=== PATIENT | female | born 1955 | race Caucasian/White ===

== ENCOUNTER 2016-11-21 12:20 | Emergency (ER) | payer MEDICAID, OTHER ==
[~2016-11-21] VITALS: Ht 152.4 cm; Wt 57.0 kg
[~2016-11-21 12:20] MED LIST: ALEN70TA30 PO; ERGO500037 PO; GLIM1TAB2 PO; HYD25 PO; LOSA100T7 PO; METF1000 PO; SIMV40TA3 PO
[2016-11-21 12:26] VITALS: Ht 152.4 cm; Wt 57.0 kg
[2016-11-21] MEDS ORDERED: ONDANSETRON (ODT) 4 MG TAB ODT STA (14:33)
[2016-11-21] MEDS ORDERED: HYDROCODONE/APAP (10/325) TAB PO ONE (15:00)
--- NOTE | 2016-11-21 15:23 | ERD ---
ER Documentation Chief Complaint Date/Time DATE: 11/21/16 TIME: 15:21 Chief Complaint Complains of ANTWON Q abdominal pain radiates to the back HPI Patient is a 61-year-old female with diabetes who presents with left upper quadrant abdominal pain. The symptoms started 3 weeks ago and she has red bumps in a rash to that area. She also has right arm numbness and headache. She denies treatment as of yet. She has no fevers. The pain is sharp in nature and constant. Upon review of old medical records this is the patient's first visit to the emergency department. She does not currently have a primary doctor. ROS All systems reviewed and are negative except as per history of present illness. Medications Home Meds Reported Medications Ergocalciferol (Vitamin D2) (VITAMIN D2) 50,000 Unit Capsule, 37477 UNIT PO 09/20/13 Glimepiride* (Glimepiride*) 1 Mg Tablet, 1 MG PO WITH BREAKFAST, TAB 09/20/13 Metformin Hcl* (Metformin Hcl*) 1,000 Mg Tablet, 1000 MG PO BID, TAB 09/20/13 Losartan Potassium* (Losartan Potassium*) 100 Mg Tablet, 100 MG PO DAILY, TAB 09/20/13 Hydrochlorothiazide* (Hydrochlorothiazide*) 25 Mg Tab, 25 MG PO DAILY, TAB 09/20/13 Simvastatin (Simvastatin) 40 Mg Tablet, 40 MG PO HS, TAB 09/20/13 Alendronate Sodium* (Fosamax*) 70 Mg Tablet, 70 MG PO Q7D, TAB 09/20/13 Allergies Allergies: Coded Allergies: No Known Allergy (Unverified , 09/20/13) PMhx/Soc Medical and Surgical Hx: pt denies Medical Hx, pt denies Surgical Hx History of Surgery: Yes (LEFT EYE SURGERY, BILO CARPAL TUNNEL SURGERY, RIGHT BREAST MASS EXCISION) Anesthesia Reaction: No Hx Neurological Disorder: No Hx Respiratory Disorders: No Hx Cardiac Disorders: Yes (HTN, HIGH CHOLESTEROL) Hx Psychiatric Problems: No Hx Miscellaneous Medical Probl: No Hx Alcohol Use: No Hx Substance Use: No Hx Tobacco Use: No Smoking Status: Never smoker FmHx Family History: diabetes Physical Exam Vitals Vital Signs Date Time Temp Pulse Resp B/P Pulse Ox O2 Delivery O2 Flow Rate FiO2 11/21/16 12:26 98.6 86 20 168/77 96 Physical Exam Const: Mild distress secondary to pain Head: Atraumatic Eyes: Normal Conjunctiva ENT: Normal External Ears, Nose and Mouth. Neck: Full range of motion..~ No meningismus. Resp: Clear to auscultation bilaterally Cardio: Regular rate and rhythm, no murmurs Abd: Dermatomal rash to the left upper abdomen and back which does not cross the midline consistent with shingles Skin: Shingles to the left upper extremity and back Back: No midline or flank tenderness Ext: No cyanosis, or edema Neur: Awake and alert Psych: Normal Mood and Affect Results 24 hrs Current Medications Medications (Trade) Dose Ordered Sig/Ruben Route PRN Reason Start Time Stop Time Status Last Admin Dose Admin Acetaminophen/ Hydrocodone Bitart ([place] (10325)) 1 tab ONCE ONCE PO 11/21/16 15:00 11/21/16 15:01 DC 11/21/16 14:42 Ondansetron HCl (Zofran Odt) 4 mg ONCE STAT ODT 11/21/16 14:33 11/21/16 14:34 DC 11/21/16 14:41 Procedures/MDM Patient is a 61-year-old female who presents with shingles to the left upper extremity and back. She will be treated with 10 days of acyclovir. She will be treated with [place] for pain. She will need to follow-up with the local clinics within the next 24-48 hours if she does not currently have a primary doctor at this time. The patient can return for any worsening symptoms. I believe outpatient management is appropriate at this time. I doubt disseminated zoster at this time. Departure Diagnosis: Primary Impression: Shingles Herpes zoster complications: without complications Qualified Code: B02.9 - Herpes zoster without complication Additional Impression: Abdominal pain Abdominal location: left upper quadrant Qualified Code: R10.12 - Left upper quadrant pain Condition: Fair Patient Instructions: Shingles (Herpes Zoster) [facility] Usted se britton hecho un examen mdico de control que le indica que no est en joyce condicin que requiera tratamiento urgente en el Departamento de Emergencia. Un estudio ms profundo y el tratamiento de quintero condicin pueden esperar sin ningn riesgo hasta que usted sea atendida/o en el consultorio de quintero mdico o joyce cl joaquin. Es responsabilidad suya arreglar joyce heron para el seguimiento del stan. MANEJO DE CONDICIONES NO URGENTES EN EL FUTURO 1) Si usted tiene un mdico de atencin primaria: Usted debera llamar a quintero mdico de atencin primaria antes de venir al departamento de emergencia. Despus de las horas de consultorio, quintero doctor o quintero asociado/a est disponible por telfono. El mdico o enfermero de aston en el servicio telefnico puede asesorarle por jesse medio para atender el problema, o stan contrario se puede programar joyce heron. 2) Si usted no tiene un mdico de atencin primaria: Llame al mdico o clnica de referencia que aparece abajo selma las horas de consultorio para hacer joyce heron para que le vean. CLINICAS: [facility] [phone] [address] [facility] [phone] [address] [facility] [phone] [address] [facility] [place] [phone] [facility]. [place] [phone] [address] [facility] [phone] [address] Additional Instructions: Llame al doctor MAANA y lester joyce HERON PARA DENTRO DE 1-2 MATTHEWS.Dgale a la secretaria que nosotros le instruimos hacer esta heron.Avise o llame si quintero condicin se empeora antes de la heron. Regresa aqui si peor o no mejor. BOB HERRERA MD Nov 21, 2016 15:23
== END 2016-11-21 15:03 | disposition home or self-care (01) ==
LOC: E/R 12:20
DX: B02.9 Zoster without complications (principal); I10 Essential (primary) hypertension; E11.9 Type 2 diabetes mellitus without complications; Z79.84 Long term (current) use of oral hypoglycemic drugs
CPT/HCPCS: Z7502; Z7610; 99283